=== PATIENT | female | born 1995 | race American Indian/Alaskan Native ===

== ENCOUNTER 2017-08-17 00:06 | Emergency (ER) | payer BC ==
[2017-08-17] MEDS ORDERED: ATIVAN ONE (00:22)
[2017-08-17] MEDS ORDERED: ATIVAN IV ONE (00:29)
[2017-08-17] MEDS ORDERED: KEPPRA 1,000 MG/NS 0.75% 100ML 1,000 MG/100 ML BAG IV ONE (00:37)
[2017-08-17] MEDS ORDERED: NACL 0.9% 1000 ML 1,000 ML IV ONE ×2 (00:37→03:03)
--- NOTE | 2017-08-17 00:42 | Emergency Department Report ---
HPI - General Chief Complaint: Seizure Time Seen by Provider: 08/17/17 00:31 - HPI HPI: Room 2 The patient is a 22-year-old female presenting with a chief complaint of seizures. Tonight at approximately 23:00 patient had a generalized tonic- clonic seizure lasting 1 minute. The visitor accompanying the patient states she's had approximately 6 or 7 seizures tonight. Patient has awaken and answer questions appropriately between seizures. Location: Central nervous system Duration: [See above] Quality: Generalized tonic-clonic Severity: Moderate Modifying factors: [see above] Context: [see above] Mode of transportation: [not driving] ED Past Medical Hx - Past Medical History Previous Medical History?: Yes Hx Seizures: Yes Additional medical history: Arachnoid cyst - Surgical History Past Surgical History?: No - Family History Family history: no significant - Social History Smoking Status: Never Smoker Substance Use Type: Alcohol (occasional), Marijuana ED Review of Systems ROS: Stated complaint: SEIZURES Other details as noted in HPI Comment: Unobtainable due to pts medical conditions Physical Exam - Physical Exam Vital Signs: Vital Signs 08/17/17 08/17/17 08/17/17 00:07 00:15 00:27 Temperature 98 F Pulse Rate 127 H 127 H Respiratory 23 22 Rate Blood Pressure 116/77 Blood Pressure [Left] O2 Sat by Pulse 100 Oximetry 08/17/17 00:28 Temperature 98 F Pulse Rate 143 H Respiratory 16 Rate Blood Pressure Blood Pressure 99/60 [Left] O2 Sat by Pulse 99 Oximetry Vital Signs 08/17/17 08/17/17 08/17/17 00:07 00:15 00:27 Temperature 98 F Pulse Rate 127 H 127 H Respiratory 23 22 Rate Blood Pressure 116/77 Blood Pressure [Left] O2 Sat by Pulse 100 Oximetry 08/17/17 08/17/17 08/17/17 00:28 00:30 00:45 Temperature 98 F Pulse Rate 143 H 126 H 125 H Respiratory 16 25 H 18 Rate Blood Pressure 110/76 107/66 Blood Pressure 99/60 [Left] O2 Sat by Pulse 99 98 98 Oximetry 08/17/17 04:42 Temperature 98 F Pulse Rate 100 H Respiratory 21 Rate Blood Pressure Blood Pressure 104/56 [Left] O2 Sat by Pulse 97 Oximetry Physical Exam: GENERAL: The patient is well-developed well-nourished female lying on stretcher appearing postictal. [] HEENT: Normocephalic. Atraumatic. Extraocular motions are intact. Patient has moist mucous membranes. NECK: Trachea midline CHEST/LUNGS: Clear to auscultation. There is no respiratory distress noted. HEART/CARDIOVASCULAR: Regular. There is no tachycardia. There is no gallop rub or murmur. ABDOMEN: Abdomen is soft, nontender. Patient has normal bowel sounds. There is no abdominal distention. SKIN: There is no rash. There is no edema. There is no diaphoresis. NEURO: The patient is postictal with random nonpurposeful movements on the stretcher. Patient opens her eyes and occasionally makes eye contact but does not speak MUSCULOSKELETAL: There is no evidence of acute injury. ED Course Vital Signs 08/17/17 08/17/17 08/17/17 00:07 00:15 00:27 Temperature 98 F Pulse Rate 127 H 127 H Respiratory 23 22 Rate Blood Pressure 116/77 Blood Pressure [Left] O2 Sat by Pulse 100 Oximetry 08/17/17 00:28 Temperature 98 F Pulse Rate 143 H Respiratory 16 Rate Blood Pressure Blood Pressure 99/60 [Left] O2 Sat by Pulse 99 Oximetry ED Medical Decision Making - Lab Data Result diagrams: 08/17/17 00:44 08/17/17 00:44 Laboratory Tests 08/17/17 08/17/17 08/17/17 00:44 00:44 00:44 WBC 5.2 RBC 4.52 Hgb 15.5 H Hct 44.8 H MCV 99 H MCH 34 H MCHC 35 H RDW 12.9 L Plt Count 186 Lymph % (Auto) 29.8 Pratt % (Auto) 8.0 H Eos % (Auto) 1.0 Baso % (Auto) 0.5 Lymph # 1.6 Pratt # 0.4 Eos # 0.1 Baso # 0.0 Seg Neutrophils % 60.7 Seg Neutrophils # 3.2 Sodium 143 Potassium 4.0 Chloride 102.8 Carbon Dioxide 25 Anion Gap 19 BUN 5 L Creatinine 0.5 L Estimated GFR > 60 BUN/Creatinine Ratio 10 Glucose 88 Calcium 8.5 Magnesium 2.00 Total Creatine Kinase 50 HCG, Qual Negative - Differential Diagnosis epilepsy, seizures, status epilepticus Critical care attestation.: If time is entered above; I have spent that time in minutes in the direct care of this critically ill patient, excluding procedure time. ED Disposition Clinical Impression: Seizure Disposition: [id number] TO HOME OR SELFCARE Is pt being admited?: No Does the pt Need Aspirin: No Condition: Stable Instructions: Epilepsy (ED) Additional Instructions: Return to the emergency department immediately should you develop worsening symptoms, fever, inability to tolerate food or liquid or any other concerns. Referrals: DIANNE BA MD [Primary Care Provider] - 3-5 Days Time of Disposition: 04:44
[2017-08-17 01:03] LABS: Basophils % (Auto) 0.5 % (0.0-1.8); Eosinophils # (Auto) 0.1 K/mm3 (0.0-0.4); Hematocrit 44.8 % (30.3-42.9); Hemoglobin 15.5 gm/dl (10.1-14.3); Lymphocytes # (Auto) 1.6 K/mm3 (1.2-5.4); Lymphocytes % (Auto) 29.8 % (13.4-35.0); Mean Corpuscular HGB Conc 35 % (30-34); Mean Corpuscular Hemoglobin 34 pg (28-32); Mean Corpuscular Volume 99 fl (79-97); Monocytes # (Auto) 0.4 K/mm3 (0.0-0.8); Platelet Count 186 K/mm3 (140-440); Red Blood Count 4.52 M/mm3 (3.65-5.03); Red Cell Distribution Width 12.9 % (13.2-15.2)
[2017-08-17 01:13] LABS: BUN/Creatinine Ratio 10; Blood Urea Nitrogen 5 mg/dL (7-17); Calcium 8.5 mg/dL (8.4-10.2); Hemolysis Index 6
[2017-08-17 04:42] VITALS: BP 104/56
== END 2017-08-17 05:20 | disposition home or self-care (01) ==
LOC: ED 00:06
DX: G40.909 Epilepsy, unspecified, not intractable, without status epilepticus (principal)
CPT/HCPCS: 36415; 80048; 82550; 83735; 84703; 85025; 96365; 96375; 99284; J1953; J2060; J7030